=== PATIENT | male | born 1995 | race Caucasian/White ===

== ENCOUNTER 2016-12-18 23:30 | Emergency (ER) | payer OTHER | END 2016-12-19 01:07 | disposition home or self-care (01) | LOC: ER 23:30 | DX: J02.9 Acute pharyngitis, unspecified (principal); R50.9 Fever, unspecified; F17.210 Nicotine dependence, cigarettes, uncomplicated; R05 Cough | CPT/HCPCS: 87070; 87400; 87880; 99282 ==

== ENCOUNTER 2017-01-01 22:10 | Emergency (ER) | payer OTHER | END 2017-01-01 22:51 | disposition home or self-care (01) | LOC: ER 22:10 | DX: F41.9 Anxiety disorder, unspecified (principal); F17.210 Nicotine dependence, cigarettes, uncomplicated | CPT/HCPCS: 99282 ==

== ENCOUNTER 2017-01-02 22:49 | Emergency (ER) | payer OTHER | END 2017-01-02 23:44 | disposition home or self-care (01) | LOC: ER 22:49 | DX: G47.00 Insomnia, unspecified (principal); F41.8 Other specified anxiety disorders; F17.210 Nicotine dependence, cigarettes, uncomplicated | CPT/HCPCS: 99282 ==

== ENCOUNTER 2017-02-14 05:34 | Emergency (ER) | payer OTHER | END 2017-02-14 06:12 | disposition home or self-care (01) | LOC: ER 05:34 | DX: F41.9 Anxiety disorder, unspecified (principal); F17.210 Nicotine dependence, cigarettes, uncomplicated | CPT/HCPCS: 99283; 99284 ==

== ENCOUNTER 2017-03-02 02:50 | Emergency (ER) | payer OTHER | END 2017-03-02 05:09 | disposition home or self-care (01) | LOC: ER 02:50 | DX: J06.9 Acute upper respiratory infection, unspecified (principal); J32.9 Chronic sinusitis, unspecified; F17.210 Nicotine dependence, cigarettes, uncomplicated | CPT/HCPCS: 99282 ==

== ENCOUNTER 2017-03-05 04:09 | Emergency (ER) | payer OTHER | END 2017-03-05 04:50 | disposition home or self-care (01) | LOC: ER 04:09 | DX: R06.02 Shortness of breath (principal); F41.9 Anxiety disorder, unspecified; F17.210 Nicotine dependence, cigarettes, uncomplicated | CPT/HCPCS: 99284 ==